=== PATIENT | female | born 1995 | race Two or more races ===

== ENCOUNTER 2020-12-29 12:22 | Emergency (ER) | payer OTHER ==
[~2020-12-29] VITALS: Ht 160 cm; Wt 63.5 kg
[2020-12-29] MEDS ORDERED: fentaNYL CITRATE 100 MCG/2 ML VL IV ONE (16:00)
[2020-12-29] MEDS ORDERED: MIDAZOLAM HCL 5 MG/ML-1ML VIAL IV ONE (16:00)
[2020-12-29] MEDS ORDERED: ETOMIDATE (2MG/ML) 20ML VIAL IV ONE (16:40)
[2020-12-29 18:29] VITALS: BP 101/53
== END 2020-12-29 21:30 | disposition home or self-care (01) ==
LOC: ER 12:22
DX: M24.411 Recurrent dislocation, right shoulder (principal); W06.XXXA Fall from bed, initial encounter; Y93.89 Activity, other specified; Y92.89 Other specified places as the place of occurrence of the external cause; Y99.8 Other external cause status
CPT/HCPCS: 23650; 73030; 99152; 99285; J2250; J3010